=== PATIENT | female | born 1985 | race Caucasian/White ===

== ENCOUNTER 2019-01-19 20:23 | Emergency (ER) | payer OTHER ==
[~2019-01-19] VITALS: Ht 162.6 cm; Wt 79.7 kg
[~2019-01-19 20:23] MED LIST: IBUP-1542 PO
[2019-01-19 20:44] VITALS: Ht 162.6 cm; Wt 79.7 kg
[2019-01-19] MEDS ORDERED: SOD CHLORIDE 0.9% 1,000 ML IV STA (21:02)
[2019-01-19] MEDS ORDERED: SOD CHLORIDE 0.9% 100 ML ONE (23:00)
[2019-01-19] MEDS ORDERED: IOHEXOL 300MG/ML 150 ML BTL ONE (23:00)
[2019-01-19 23:31] VITALS: BP 110/72; PULSE 80; RESP 19
== END 2019-01-19 23:32 | disposition home or self-care (01) ==
LOC: FTE 20:23
DX: R10.31 Right lower quadrant pain (principal)
CPT/HCPCS: 36415; 74177; 80053; 81003; 81025; 83690; 85025; 85610; 85730; 96360; 99285; J7030; Q9967